=== PATIENT | female | born 1930 | race Caucasian/White ===

== ENCOUNTER 2017-12-20 13:33 | Outpatient (CLI) | payer MEDICARE, OTHER | END 2017-12-20 13:35 | LOC: CARD 13:33 | PROVIDERS: ATTEND Internal Medicine Cardiovascular Disease | DX: I50.9 Heart failure, unspecified (principal) ==

== ENCOUNTER 2018-04-13 15:04 | Emergency (ER) | payer MEDICARE, OTHER ==
--- NOTE | 2018-04-13 15:38 | ED Physician Documentation ---
Hand Injury - HISTORIAN Historian: patient - HPI Stated Complaint: R wrist pain Chief Complaint: Wrist Injury Onset: yesterday Where: home Severity: mild Duration: persistent since Context: other (not sure of cause ) Location of Injury: R wrist Modifying Factors: pain on movement Further Comments: yes (she reports a mild swelling last night then this am increased swelling and pain > she denies any injury. She is able to move the hand and wrist) - ROS CONST: no problems - PAST HX Past History: other (hypertension ) Immunizations: UTD Allergies/Adverse Reactions: Allergies Allergy/AdvReac Type Severity Reaction Status Date / Time No Known Allergies Allergy Verified 04/13/18 15:22 Home Medications: Ambulatory Orders Medication Instructions Recorded Furosemide [Lasix] 1 tab PO DAILY 04/13/18 Lisinopril [Zestril] 1 tab PO DAILY 04/13/18 Nifedipine [Afeditab Cr] 1 tab PO DAILY 04/13/18 - SOCIAL HX Smoking History: non-smoker Alcohol Use: none Drug Use: none - FAMILY HX Family History: none - VITAL SIGNS Vital Signs: Vital Signs Temp Pulse Resp BP Pulse Ox 97.7 F 79 15 129/63 95 04/13/18 15:10 04/13/18 15:10 04/13/18 15:10 04/13/18 15:10 04/13/18 15:10 - REVIEWED ASSESSMENTS Nursing Assessment Reviewed: Yes Vitals Reviewed: Yes Progress - Progress Progress: 1720: discussed results and plan she is agreeable DG ED Results Lab/Radiology - Radiology Radiology Impressions: Right hand three views History: Pain and swelling Findings: 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 The lunate is collapsed. A capitate fracture may be present. Impression: 1. Osteoarthritis. 2. Collapse lunate and possible capitate fracture. Recommend noncontrast limited wrist CT follow-up. Electronically signed on Apr 13, 2018 4:01:44 PM BLOW PIT HELPER by: Jesus Koenig Right wrist three views History: Pain and swelling Findings: The lunate appears partially collapsed. A capitate fracture cannot be excluded. There is rotary subluxation of the scaphoid and radiolunate joint space widening. 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 Recommend noncontrast limited wrist CT follow-up. Electronically signed on Apr 13, 2018 4:04:52 PM BLOW PIT HELPER by: Jesus Koenig - Orders Orders: ED Orders Category Date Time Status HAND 3 VIEWS OR MORE [RAD] Stat Exams 04/13/18 Ordered WRIST 3 VIEWS OR MORE [RAD] Stat Exams 04/13/18 Ordered CBC/PLATELET/DIFF Stat Lab 04/13/18 15:29 Ordered CMP Stat Lab 04/13/18 15:29 Ordered Hand Injury Physical Exam - Exam General Appearance: no acute distress, alert Hand: other (right hand at base of hand and wrist redness and swelling approx 4 cm in size elevated. FROM but with pain. Pulses + and sensation + ) Neuro: sensation nml Vascular: no vascular compromise Tendons: tendon function nml Forearm/Elbow/Arm: uninjured above wrist Head/ENT: nml inspection Neck/Back: nml inspection Resp/CVS: chest non-tender, breath sounds nml, heart sounds nml, no resp. distress, lungs clear, reg. rate & rhythm Abdomen: non-tender Discharge Clincal Impression: Wrist pain, right Referrals: Uvaldo Bartholomew [Primary Care Provider] - 2 Days Comments: 1. Billy wrap 2. See PCP in 2=4 days 3. Tylenol or Ibuprofen for pain as directed 4. Ice to area 5. Return to ER if any concerns Condition: Stable Disposition: 01 HOME, SELF-CARE Decision to Admit: NO Date of Decison to Admit: 04/13/18 Decision Time: 17:27
[2018-04-13 16:03] LABS: BASOPHILS % 0.3 (0.0-1.5); EOSINOPHILS % 1.3 % (0.0-6.8); MEAN CORPUSCULAR HEMOGLOBIN 29.2 pg (28.0-34.0); MONOCYTES % 9.3 % (0.0-11.0); NEUTROPHILS # 5.3 # k/uL (1.4-7.7)
--- NOTE | 2018-04-13 16:15 | Diagnostic Imaging Report ---
PAPO SAM [facility] [address] [facility] [address] 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 The lunate is collapsed. A capitate fracture may be present. Impression: 1. Osteoarthritis. 2. Collapse lunate and possible capitate fracture. Recommend noncontrast limited wrist CT follow-up. Electronically signed on Apr 13, 2018 4:01:44 PM PRACTICE DIRECTOR by: Jesus LYNN
--- NOTE | 2018-04-13 16:15 | Diagnostic Imaging Report ---
PAPO SAM [facility] [id number] [facility] [address] [address] Report Submission Date: Apr 13, 2018 4:04:52 PM CONTROL OPERATOR Patient Study Name: REMINGTON PEARSON I Date: Apr 13, 2018 3:43:54 PM CONTROL OPERATOR Modality Type: DX Gender: F Description: UPPER EXTREMITY : [birth year] Institution: [facility] Physician: PAPO SAM Right wrist three views History: Pain and swelling Findings: The lunate appears partially collapsed. A capitate fracture cannot be excluded. There is rotary subluxation of the scaphoid and radiolunate joint space widening. 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 Recommend noncontrast limited wrist CT follow-up. Electronically signed on Apr 13, 2018 4:04:52 PM CONTROL OPERATOR by: Jesus LYNN
[2018-04-13 16:16] LABS: eGFR (Non-African) > 60
--- NOTE | 2018-04-13 17:24 | Diagnostic Imaging Report ---
PAPO [facility] [id number] [facility] [address] [address] Report Submission Date: Apr 13, 2018 5:10:14 PM EDUCATIONAL TECHNOLOGIST Patient Study Name: REMINGTON PEARSON I Date: Apr 13, 2018 4:43:00 PM EDUCATIONAL TECHNOLOGIST Modality Type: CT Gender: F Description: : [birth year] Institution: [facility] Physician: PAPO SAM Computed tomography of the right wrist without contrast History: Wrist deformity and possible fracture on plain films. Pain and swelling. Findings: Transverse right wrist sections are obtained without contrast revealing partial collapse of the lunate suggesting sequela of avascular necrosis. Moderate capital lunate osteoarthritis is present. Mild osteoarthritis is observed in the 1st carpometacarpal joint. There is no evidence of fracture. Degenerative subchondral lucency is present in the distal scaphoid. Impression: 1. 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 Secondary capital lunate osteoarthritis. 3. No evidence of acute fracture. Electronically signed on Apr 13, 2018 5:10:14 PM EDUCATIONAL TECHNOLOGIST by: Jesus LYNN
[2018-04-13 17:41] VITALS: BP 132/68
== END 2018-04-13 17:30 | disposition home or self-care (01) ==
LOC: ED 15:04
DX: M25.531 Pain in right wrist (principal); R22.31 Localized swelling, mass and lump, right upper limb; M19.241 Secondary osteoarthritis, right hand
CPT/HCPCS: 29280; 36415; 73110; 73130; 73200; 80053; 85025; 99283; 99284